=== PATIENT | female | born 1945 | race Caucasian/White ===

== ENCOUNTER 2016-12-06 20:17 | Emergency (ER) | payer MEDICARE ==
[~2016-12-06] VITALS: Ht 152.4 cm; Wt 89.0 kg
[2016-12-06 20:21] VITALS: BP 158/94
== END 2016-12-06 22:15 | disposition home or self-care (01) ==
LOC: ED 22:02
DX: S82.035A Nondisplaced transverse fracture of left patella, initial encounter for closed fracture (principal); W01.0XXA Fall on same level from slipping, tripping and stumbling without subsequent striking against object, initial encounter; Y93.89 Activity, other specified; Y92.511 Restaurant or cafe as the place of occurrence of the external cause; Y99.9 Unspecified external cause status
CPT/HCPCS: 29505; 99284